=== PATIENT | female | born 1955 | race Caucasian/White ===

== ENCOUNTER 2017-05-17 16:49 | Emergency (ER) | payer BC ==
--- NOTE | 2017-05-17 19:43 | ED CLINICAL REPORT ---
Clinical Report - Physicians/Mid Levels [facility] [address] [place] [address] 05/17/2017 16:50 Patient: TORO GARCIA Time Seen: 17:00; upon arrival, initial patient contact. Arrived- By ambulance. Historian- patient and EMS personnel. HISTORY OF PRESENT ILLNESS Chief Complaint: ABDOMINAL PAIN. At its maximum, severity described as moderate. When seen in the E.D., it was almost gone. Modifying factors. Not worsened by anything. Not relieved by anything. It is described as sharp and burning. No radiation. It is described as located in the epigastric area. This started just prior to arrival. No nausea, loss of appetite, vomiting or diarrhea. Similar symptoms previously: None. Recent medical care: Not recently seen/assessed. REVIEW OF SYSTEMS No constipation, black stools, hematemesis, difficulty with urination or pain with urination. No urinary frequency, bloody stools, fever, chest pain or difficulty breathing. No chills. All systems otherwise negative, except as recorded above. PAST HISTORY Depression. SURGERIES: Bladder Sling. Tubal Ligation. SOCIAL HISTORY Never smoker. Occasional alcohol use. No drug use. ADDITIONAL NOTES The nursing notes have been reviewed. PHYSICAL EXAM Vital Signs: 05/17/2017 16:58 BP: 130/64. HR: 65. RR: 16. O2 saturation: 100%. Temp: 97.9 F. Have been reviewed. Blood pressure normal. Appearance: Alert. Oriented X3. No acute distress. Eyes: Eyes normal inspection. No pale conjunctivae. ENT: Dry mucous membranes present. CVS: Normal heart rate and rhythm. Heart sounds normal. Respiratory: No respiratory distress. Breath sounds normal. Abdomen: Soft and nontender. Bowel sounds normal. No mass. Femoral pulses equal. Back: Normal inspection. No CVA tenderness. Skin: Skin warm and dry. Normal skin color. No rash. Extremities: No calf tenderness. No lower extremity edema. Neuro: Oriented X 3. LABS, X-RAYS, AND EKG EKG: EKG time: (7185). No acute ischemia. Narrow-complex bradycardia (ventricular rate 55). Normal P waves. Normal ADI. Normal QRS complex. Normal axis. Normal ST and T waves, QT and QTc. Prior EKG unavailable. The study has been interpreted contemporaneously by me. The study has been independently viewed by me. The EKG appears to be a good tracing. I agree with and confirm the computer reading of the EKG. Interpretation time: 1705. Laboratory Tests: UA-Culture if indicated: (VINNY: 05/17/2017 18:05) ( MsgRcvd 05/17/2017 18:37) Final results Test Result Flag Units (Reference) URINE COLOR YELLOW URINE APPEARANCE CLEAR URINE GLUCOSE NEGATIVE (NEGATIVE) URINE BILIRUBIN NEGATIVE (NEGATIVE) URINE KETONE NEGATIVE (NEGATIVE) URINE SPECIFIC GRAVITY 1.025 (1.010-1.030) URINE PH 6.0 (5.0-8.0) URINE PROTEIN 1+ (NEGATIVE) URINE UROBILINOGEN 0.2 EU/dL (0.2-1.0) URINE NITRITE NEGATIVE (NEGATIVE) URINE BLOOD NEGATIVE (NEGATIVE) URINE LEUK ESTERASE NEGATIVE (NEGATIVE) URINE RBC NONE SEEN rbc/hpf (0-1) This is a corrected result 05/17/171833:URINE RBC previously reported as: 10-25 rbc/hpf URINE WBC 0-1 wbc/hpf (0-1) This is a corrected result 05/17/171833:URINE WBC previously reported as: 1-3 wbc/hpf URINE EPITHELIAL CELLS 1-3 EPI/hpf (0-5) URINE BACTERIA NONE SEEN (NONE SEEN) This is a corrected result 05/17/171834:URINE BACTERIA previously reported as: MANY (4+) URINE COMMENT CULT NOT INDICATED This is a corrected result 05/17/171834:URINE COMMENT previously reported as: CULTURE INDICATEDURINE CULTURES ARE SET-UP BASED ON THE FOLLOWING CRITERIA:POSITIVE NITRITEPOSITIVE LEUKOCYTE ESTERASEGREATER THAN 10 WHITE BLOOD CELLSMODERATE (2+) OR GREATER BACTERIA CBC w Diff: (VINNY: 05/17/2017 17:20) ( [facility] 05/17/2017 17:45) Final results Test Result Flag Units (Reference) WHITE BLOOD COUNT 7.5 K/uL (4.5-11.5) RED BLOOD COUNT 4.23 M/uL (4.00-5.20) HEMOGLOBIN 12.4 gm/dL (12.0-16.0) HEMATOCRIT 37.4 % (36.0-46.0) MEAN CELL VOLUME 88 fL (80-100) MEAN CORPUSCULAR HGB 29 pg (26-34) MEAN CORPUSCULAR HGB CONC 33 g/dL (31-37) RED CELL DISTRIBUTION WIDTH 12.6 % (11.6-14.8) PLATELET COUNT 110 L K/uL (150-400) LYMPH % 21.1 L % (25-40) MONO % 3.8 % (3-14) GRANULOCYTE % 75.1 (53-90) [id number]: (VINNY: 05/17/2017 17:20) ( [facility] 05/17/2017 17:51) Final results Test Result Flag Units (Reference) D-DIMER QUANTITATIVE 0.44 ug/mLFEU (0.27-0.52) The primary value of this quantitative assay relates toits negative predictive value (i.e. exclusion) of pulmonaryembolism/deep vein thrombosis/DIC.Elevated levels of d-dimer may also occur with:, age, cancer, inflammation, liver disease,post-op, infection, hematoma, coronary disease, peripheralarteriopathy, bleeding disorders and thrombolytic treatment.Results should be correlated with other clinical andradiological data.Testing Methodology: Latex Immunoassay CMP: (VINNY: 05/17/2017 17:20) ( MsgRcvd 05/17/2017 17:57) Final results Test Result Flag Units (Reference) GLUCOSE 103 mg/dL (70-110) BUN 17 mg/dL (7-18) CREATININE 0.8 mg/dL (0.6-1.3) Estimated GFR >60 mL/min Estimated GFR- >60 mL/min Note: Persistent reduction over 3 months in eGFR<60 mL/min/1.73 m2 defines CKD. Patients with eGFR values>=60 mL/min/1.73 m2 may also have CKD if evidence ofpersistent proteinuria. Additional information may be foundat [email or web address].org. SODIUM 144 mmol/L (136-145) POTASSIUM 3.7 mmol/L (3.5-5.1) CHLORIDE 108 H mmol/L (98-107) CARBON DIOXIDE 27 mmol/L (21-32) CALCIUM 8.2 L mg/dL (8.5-10.1) TOTAL PROTEIN 6.6 g/dL (6.4-8.2) ALBUMIN 3.2 L g/dL (3.3-5.0) BILIRUBIN, TOTAL 0.8 mg/dL (0.0-1.0) ALKALINE PHOSPHATASE 49 U/L (46-116) AST (SGOT) 53 H U/L (15-37) ALT (SGPT) 64 U/L (12-78) LIPASE 217 U/L (73-393) AMYLASE 41 U/L (25-115) . PROGRESS AND PROCEDURES Disposition: Discharged home in good and improved condition. Condition: good. CLINICAL IMPRESSION Acute gastritis. No alcoholic gastritis or hemorrhagic gastritis. Vasovagal syncope .12 lead EKG performed. INSTRUCTIONS Drink plenty of fluids. Your Current Medications: CONTINUE TAKING THE FOLLOWING MEDICATIONS: Sertraline HCl Oral : 100 mg daily. Prescription Medications: Omeprazole 40 mg capsules: take 1 capsule orally every day. Dispense thirty (30). No refill. Follow-up: Follow up with your doctor in about two days. Call for an appointment. Screening today revealed the patient's blood pressure to be in the hypertensive range. The patient should follow up with a primary care provider for blood pressure management. (Electronically signed by Michael Pascal Dr. 05/17/2017 22:18)
--- NOTE | 2017-05-17 19:43 | ED NURSING NOTES ---
Clinical Report - Nurses [facility] [address] [place] [address] 05/17/2017 16:50 Patient: TORO GARCIA TRIAGE Triage time 16:58. Acuity: LEVEL 3. Chief Complaint: (WEAKNESS). 16:59 05/17/17. 16:58 05/17/17. Alert. No acute distress. ( Pt was driving her car, developed abd pain, went to take TUMS, then felt weak, called 911 while pt was in her car. Pt was found to be hypotensive SBP 70's. After 800 mLs IV fluid pts BP came up and pt felt better.). SEPSIS SCREEN: Sepsis Screen. Negative (no infection suspected/documented). ALFONSO COMA SCORE: [place] Coma Scale: 15- eyes open spontaneously (4); best verbal response- oriented x 4 (5); best motor response- obeys commands (6). --17:03 Jurgen Turk R.N. 16:58 05/17/17. BP: 130/64. HR: 65. RR: 16. O2 saturation: 100% on room air. Temp: 97.9 F (oral). --17:03 Jurgen Turk R.N. Weight: 81.6 kg stated. Height/Length: 65 inches Per Patient. BMI: 30. --17:01 Jurgen Turk R.N. Medications Sertraline HCl Oral 100 mg, daily. --17:02 Jurgen Turk R.N. Medication/allergy information source: the patient and EMS. --17:03 Jurgen Turk R.N. Allergies Sulfa Antibiotics. --17:03 Jurgen Turk R.N. History Arrived by EMS. Primary physician (Isabel ERICKSON ([facility])). 16:59 05/17/17. ( 1 hour ago). Treatment RESIDENTIAL RECYCLE DRIVER: None. See EMS report. ( IV left hand by EMS, 800 mLs NS). PAST MEDICAL HX: Immunizations: up-to-date. SOCIAL HX: Never smoker. Occasional alcohol use. No drug use. FALL RISK ASSESSMENT: Fall risk assessment completed. No fall risk identified. NUTRITIONAL RISK ASSESSMENT: The nutritional risk assessment revealed no deficiencies. FUNCTIONAL ASSESSMENT: Functional assessment: no impairments noted. LEARNING NEEDS ASSESSMENT: The learning needs assessment revealed no barriers. SKIN INTEGRITY ASSESSMENT: Skin integrity risk assessment completed. No skin integrity risk identified. --17:03 Jurgen Turk R.N. Treatment RESIDENTIAL RECYCLE DRIVER: ( EKG time 1635-NSR). --17:22 Jurgen Turk R.N. PROBLEMS: Depression. --17:03 Jurgen Turk R.N. ADDITIONAL SURGERIES: Bladder Sling. Tubal Ligation. --17:03 Jurgen Turk R.N. Assessment 16:59 05/17/17. --17:03 Jurgen Turk R.N. Interventions 16:58 05/17/17. 16:59 05/17/17. ID and allergy band on patient. To treatment room. --17:03 Jurgen Turk R.N. PHYSICAL ASSESSMENT 17:04 05/17/17. To room via stretcher. GENERAL / NEURO / PSYCH: Alert. Oriented X 4. Appears in no acute distress. RESPIRATORY: Respirations not labored. CVS: Normal sinus rhythm noted. Cardiac rhythm: normal sinus rhythm; (60). Capillary refill less than 2 seconds. SKIN: Skin is warm and dry. --17:04 Jurgen Turk R.N. NURSING PROGRESS NOTES 17:05/17/17. The plan of care for this patient has been created. hospital monitor, pulse oximeter and NIBP monitor placed on patient; monitor alarms on. Patient gowned. Head of bed elevated. Reassurance given. Two patient identifiers checked. Call light placed in reach. Side rails up x 2. Bed placed in lowest position. Brakes of bed on. --17:04 Jurgen Turk R.N. 17:05/17/17. Patient ready for evaluation- chart flagged and notification provided. --17:04 Jurgen Turk R.N. 17:05/17/17. EKG time: (1705 PM). EKG was ordered, performed by a tech and shown to the ED physician. --17:05 Jurgen Turk R.N. 17:10 05/17/2017 Site #1 started prior to arrival by EMS via IV in the left hand with an 18g angiocath. Blood drawn: rainbow set (sajan labs out of IV prior to IV fluid start, 10 mL blood waste). --17:20 Jurgen Turk R.N. 17:20 05/17/2017 Started bag #1 1000 mL IV Fluids IV NS (Saline); at 1000 mL/hr over 1 hour(s) via site #1. Allergies verified and confirmed 5 rights. IV patency established. IV site checked: no pain, redness, or swelling. IV flushed thoroughly pre- and post-medication administration. Completed per protocol. --17:20 Jurgen Turk R.N. 17:22 05/17/17. Cardiac rhythm: normal sinus rhythm. --17:22 Jurgen Turk R.N. 17:20 05/17/17. HR: 57. RR: 11. O2 saturation: 98% on room air. --17:22 Jurgen Turk R.N. 17:41 05/17/17. --17:41 Jurgen Turk R.N. 17:40 05/17/17. BP: 140/80. HR: 80. RR: 14. O2 saturation: 99% on room air. Temp: 98.2 F (oral). --17:41 Jurgen Turk R.N. 17:52 05/17/17. --17:52 Jurgen Turk R.N. 17:51 05/17/17. BP: 134/76 taken while lying. HR: 63. RR: 15. O2 saturation: 97% on room air. --17:52 Jurgen Turk R.N. 17:53 05/17/17. Cardiac rhythm: normal sinus rhythm. --17:53 Jurgen Turk R.N. 17:54 05/17/17. Cardiac rhythm: normal sinus rhythm. --17:54 Jurgen Turk R.N. 17:53 05/17/17. BP: 131/71 taken while sitting. HR: 71. RR: 16. O2 saturation: 98% on room air. --17:54 Jurgen Turk R.N. <<STRICKEN ENTRY-- 17:53 05/17/17. BP: 134/76 taken while sitting. HR: 71. RR: 16. O2 saturation: 98% on room air. --17:54 Jurgen Turk R.N. --END STRIKE>> Correction. --19:04 Jurgen Turk R.N. 17:55 05/17/17. Cardiac rhythm: normal sinus rhythm. --17:55 Jurgen Turk R.N. 17:54 05/17/17. BP: 141/97 taken while standing. HR: 76. RR: 15. O2 saturation: 100% on room air. --17:55 Jurgen Turk R.N. 18:50 05/17/17. --18:50 Jurgen Turk R.N. 18:49 05/17/17. BP: 142/76. HR: 61. RR: 16. O2 saturation: 100% on room air. Temp: 98.1 F (oral). Pain level now: 0/10. --18:50 Jurgen Turk R.N. 19:02 05/17/17. Care transferred and report given. --19:02 Jurgen Turk R.N. 19:05 05/17/17. ( Pt up to void). --19:05 Jugren Turk R.N. 19:05/17/17. Patient and family informed about reason for wait and about plan of care. --19:05 Jurgen Turk R.N. 19:05/17/17. The patient reports no complaints. RESPIRATORY: No respiratory distress. SKIN: Skin is warm and dry. Skin color within normal limits. --19:05 Jurgen Turk R.N. DISPOSITION / DISCHARGE 20:04 05/17/2017 Site #1 removed upon discharge. Catheter intact. Manual pressure and bandage applied. --20:06 Jane Sotelo R.N. 20:06 05/17/17. BP: 144/76 taken on the right arm, while lying. HR: 64 (regular). RR: 18. O2 saturation: 98% on room air. Temp: deferred. Pain level now: 0/10. --20:07 Jane Sotelo R.N. Departure time: 20:07. Condition at departure: improved and stable. No learning barriers present. Discharge instructions provided and reviewed with the patient. Reviewed medication(s) side effects, precautions, dosing and course information. Prescription(s) given to the patient. Reviewed referral to a primary care physician for followup. Patient verbalized understanding. Written instructions provided in [place]i. The patient was discharged home and accompanied by spouse. She left the Emergency Department ambulatory and via private vehicle. Spouse driving. --20:07 Jane Sotelo R.N. 20:05 05/17/2017 IV Fluids IV NS Discontinued: upon discharge. Total amount infused: 0 mL. IV patency established. IV site checked: no pain, redness, or swelling. IV flushed thoroughly. --20:08 Jane Sotelo R.N. Locked/Released at 05/17/2017 20:08 by Jane Sotelo R.N.
--- NOTE | 2017-05-17 19:43 | ED NURSING NOTES ---
Clinical Report - Nurses [facility] [address] [place] [address] 05/17/2017 16:50 Patient: TORO GARCIA TRIAGE Triage time 16:58. Acuity: LEVEL 3. Chief Complaint: (WEAKNESS). 16:59 05/17/17. 16:58 05/17/17. Alert. No acute distress. ( Pt was driving her car, developed abd pain, went to take TUMS, then felt weak, called 911 while pt was in her car. Pt was found to be hypotensive SBP 70's. After 800 mLs IV fluid pts BP came up and pt felt better.). SEPSIS SCREEN: Sepsis Screen. Negative (no infection suspected/documented). ALFONSO COMA SCORE: [place] Coma Scale: 15- eyes open spontaneously (4); best verbal response- oriented x 4 (5); best motor response- obeys commands (6). --17:03 Jurgen Turk R.N. 16:58 05/17/17. BP: 130/64. HR: 65. RR: 16. O2 saturation: 100% on room air. Temp: 97.9 F (oral). --17:03 Jurgen Turk R.N. Weight: 81.6 kg stated. Height/Length: 65 inches Per Patient. BMI: 30. --17:01 Jurgen Turk R.N. Medications Sertraline HCl Oral 100 mg, daily. --17:02 Jurgen Turk R.N. Medication/allergy information source: the patient and EMS. --17:03 Jurgen Turk R.N. Allergies Sulfa Antibiotics. --17:03 Jurgen Turk R.N. History Arrived by EMS. Primary physician (Isabel ERICKSON ([facility])). 16:59 05/17/17. ( 1 hour ago). Treatment TABULAR TYPIST: None. See EMS report. ( IV left hand by EMS, 800 mLs NS). PAST MEDICAL HX: Immunizations: up-to-date. SOCIAL HX: Never smoker. Occasional alcohol use. No drug use. FALL RISK ASSESSMENT: Fall risk assessment completed. No fall risk identified. NUTRITIONAL RISK ASSESSMENT: The nutritional risk assessment revealed no deficiencies. FUNCTIONAL ASSESSMENT: Functional assessment: no impairments noted. LEARNING NEEDS ASSESSMENT: The learning needs assessment revealed no barriers. SKIN INTEGRITY ASSESSMENT: Skin integrity risk assessment completed. No skin integrity risk identified. --17:03 Jurgen Turk R.N. Treatment TABULAR TYPIST: ( EKG time 1635-NSR). --17:22 Jurgen Turk R.N. PROBLEMS: Depression. --17:03 Jurgen Turk R.N. ADDITIONAL SURGERIES: Bladder Sling. Tubal Ligation. --17:03 Jurgen Turk R.N. Assessment 16:59 05/17/17. --17:03 Jurgen Turk R.N. Interventions 16:58 05/17/17. 16:59 05/17/17. ID and allergy band on patient. To treatment room. --17:03 Jurgen Turk R.N. PHYSICAL ASSESSMENT 17:04 05/17/17. To room via stretcher. GENERAL / NEURO / PSYCH: Alert. Oriented X 4. Appears in no acute distress. RESPIRATORY: Respirations not labored. CVS: Normal sinus rhythm noted. Cardiac rhythm: normal sinus rhythm; (60). Capillary refill less than 2 seconds. SKIN: Skin is warm and dry. --17:04 Jurgen Turk R.N. NURSING PROGRESS NOTES 17:05/17/17. The plan of care for this patient has been created. front desk monitor, pulse oximeter and NIBP monitor placed on patient; monitor alarms on. Patient gowned. Head of bed elevated. Reassurance given. Two patient identifiers checked. Call light placed in reach. Side rails up x 2. Bed placed in lowest position. Brakes of bed on. --17:04 Jurgen Turk R.N. 17:05/17/17. Patient ready for evaluation- chart flagged and notification provided. --17:04 Jurgen Turk R.N. 17:05/17/17. EKG time: (1705 PM). EKG was ordered, performed by a tech and shown to the ED physician. --17:05 Jurgen Turk R.N. 17:10 05/17/2017 Site #1 started prior to arrival by EMS via IV in the left hand with an 18g angiocath. Blood drawn: rainbow set (sajan labs out of IV prior to IV fluid start, 10 mL blood waste). --17:20 Jurgen Turk R.N. 17:20 05/17/2017 Started bag #1 1000 mL IV Fluids IV NS (Saline); at 1000 mL/hr over 1 hour(s) via site #1. Allergies verified and confirmed 5 rights. IV patency established. IV site checked: no pain, redness, or swelling. IV flushed thoroughly pre- and post-medication administration. Completed per protocol. --17:20 Jurgen Turk R.N. 17:22 05/17/17. Cardiac rhythm: normal sinus rhythm. --17:22 Jurgen Turk R.N. 17:20 05/17/17. HR: 57. RR: 11. O2 saturation: 98% on room air. --17:22 Jurgen Turk R.N. 17:41 05/17/17. --17:41 Jurgen Turk R.N. 17:40 05/17/17. BP: 140/80. HR: 80. RR: 14. O2 saturation: 99% on room air. Temp: 98.2 F (oral). --17:41 Jurgen Turk R.N. 17:52 05/17/17. --17:52 Jurgen Turk R.N. 17:51 05/17/17. BP: 134/76 taken while lying. HR: 63. RR: 15. O2 saturation: 97% on room air. --17:52 Jurgen Turk R.N. 17:53 05/17/17. Cardiac rhythm: normal sinus rhythm. --17:53 Jurgen Turk R.N. 17:54 05/17/17. Cardiac rhythm: normal sinus rhythm. --17:54 Jurgen Turk R.N. 17:53 05/17/17. BP: 131/71 taken while sitting. HR: 71. RR: 16. O2 saturation: 98% on room air. --17:54 Jurgen Turk R.N. <<STRICKEN ENTRY-- 17:53 05/17/17. BP: 134/76 taken while sitting. HR: 71. RR: 16. O2 saturation: 98% on room air. --17:54 Jurgen Truk R.N. --END STRIKE>> Correction. --19:04 Jurgen Turk R.N. 17:55 05/17/17. Cardiac rhythm: normal sinus rhythm. --17:55 Jurgen Turk R.N. 17:54 05/17/17. BP: 141/97 taken while standing. HR: 76. RR: 15. O2 saturation: 100% on room air. --17:55 Jurgen Turk R.N. 18:50 05/17/17. --18:50 Jurgen Turk R.N. 18:49 05/17/17. BP: 142/76. HR: 61. RR: 16. O2 saturation: 100% on room air. Temp: 98.1 F (oral). Pain level now: 0/10. --18:50 Jurgen Turk R.N. 19:02 05/17/17. Care transferred and report given. --19:02 Jurgen Turk R.N. 19:05 05/17/17. ( Pt up to void). --19:05 Jurgen Turk R.N. 19:05/17/17. Patient and family informed about reason for wait and about plan of care. --19:05 Jurgen Turk R.N. 19:05/17/17. The patient reports no complaints. RESPIRATORY: No respiratory distress. SKIN: Skin is warm and dry. Skin color within normal limits. --19:05 Jurgen Turk R.N. DISPOSITION / DISCHARGE 20:04 05/17/2017 Site #1 removed upon discharge. Catheter intact. Manual pressure and bandage applied. --20:06 Jane Sotelo R.N. 20:06 05/17/17. BP: 144/76 taken on the right arm, while lying. HR: 64 (regular). RR: 18. O2 saturation: 98% on room air. Temp: deferred. Pain level now: 0/10. --20:07 Jane Sotelo R.N. Departure time: 20:07. Condition at departure: improved and stable. No learning barriers present. Discharge instructions provided and reviewed with the patient. Reviewed medication(s) side effects, precautions, dosing and course information. Prescription(s) given to the patient. Reviewed referral to a primary care physician for followup. Patient verbalized understanding. Written instructions provided in [place]. The patient was discharged home and accompanied by spouse. She left the Emergency Department ambulatory and via private vehicle. Spouse driving. --20:07 Jane Sotelo R.N. 20:05 05/17/2017 IV Fluids IV NS Discontinued: upon discharge. Total amount infused: 0 mL. IV patency established. IV site checked: no pain, redness, or swelling. IV flushed thoroughly. --20:08 Jane Sotelo R.N. Locked/Released at 05/17/2017 20:08 by Jane Sotelo R.N.
--- NOTE | 2017-05-17 19:43 | ED ORDER SUMMARY ---
..... Patient: TORO GARCIA OrderSheet [facility] VisitID: [id number] [place] [address] 61y, F Registration Date/Time: 05/17/2017 ORDER SHEET Weight: 81.6 kg (stated) Allergies: Sulfa Antibiotics GENERAL ORDERS: CBC w Diff Urgent (17:01 05/17/2017 Aquilino Yang) (Ack 17:03 LNations ER Tech1) (17:19 JBoardley R.N.) CMP Urgent (17:05/17/2017 Aquilino Yang) (Ack 17:03 LNations ER Tech1) (17:19 JBoardley R.N.) UA-Culture if indicated Urgent (17:01 05/17/2017 Aquilino Yang) (Ack 17:03 LNations ER Tech1) (18:12 JBoardley R.N.) Amylase Urgent (17:05/17/2017 Aquilino Yang) (Ack 17:03 LNations ER Tech1) (17:19 JBoardley R.N.) Lipase Urgent (17:01 05/17/2017 Aquilino Yang) (Ack 17:03 LNations ER Tech1) (17:19 JBoardley R.N.) D-Dimer Urgent (17:01 05/17/2017 Aquilino Yang) (Ack 17:03 LNations ER Tech1) (17:19 JBoardley R.N.) EKG - ER Stat (18:46 05/17/2017 LNations ER Tech1 per protocol) (18:46 LNations ER Tech1) MEDICATION ORDERS: IV FLUIDS: IV NS : initial bolus none -, then 1000 mL/hr for X1 (NOW) (17:00 05/17/2017 Aquilino Yang) (Ack 17:05 JBoardley R.N.) (17:20 JBoardley R.N.) ORDER SHEET NOTES: [Electronically signed by Jane Sotelo R.N. (20:08 05/17/2017)] [Electronically signed by Michael Pascal Dr. (22:18 05/17/2017)] [Electronically locked/signed by Jane Sotelo R.N. (20:08 05/17/2017)]
--- NOTE | 2017-05-17 19:43 | ED CLINICAL REPORT ---
Clinical Report - Physicians/Mid Levels Formerly [facility] [address] [place] [address] 05/17/2017 16:50 Patient: TORO GARCIA Time Seen: 17:00; upon arrival, initial patient contact. Arrived- By ambulance. Historian- patient and EMS personnel. HISTORY OF PRESENT ILLNESS Chief Complaint: ABDOMINAL PAIN. At its maximum, severity described as moderate. When seen in the E.D., it was almost gone. Modifying factors. Not worsened by anything. Not relieved by anything. It is described as sharp and burning. No radiation. It is described as located in the epigastric area. This started just prior to arrival. No nausea, loss of appetite, vomiting or diarrhea. Similar symptoms previously: None. Recent medical care: Not recently seen/assessed. REVIEW OF SYSTEMS No constipation, black stools, hematemesis, difficulty with urination or pain with urination. No urinary frequency, bloody stools, fever, chest pain or difficulty breathing. No chills. All systems otherwise negative, except as recorded above. PAST HISTORY Depression. SURGERIES: Bladder Sling. Tubal Ligation. SOCIAL HISTORY Never smoker. Occasional alcohol use. No drug use. ADDITIONAL NOTES The nursing notes have been reviewed. PHYSICAL EXAM Vital Signs: 05/17/2017 16:58 BP: 130/64. HR: 65. RR: 16. O2 saturation: 100%. Temp: 97.9 F. Have been reviewed. Blood pressure normal. Appearance: Alert. Oriented X3. No acute distress. Eyes: Eyes normal inspection. No pale conjunctivae. ENT: Dry mucous membranes present. CVS: Normal heart rate and rhythm. Heart sounds normal. Respiratory: No respiratory distress. Breath sounds normal. Abdomen: Soft and nontender. Bowel sounds normal. No mass. Femoral pulses equal. Back: Normal inspection. No CVA tenderness. Skin: Skin warm and dry. Normal skin color. No rash. Extremities: No calf tenderness. No lower extremity edema. Neuro: Oriented X 3. LABS, X-RAYS, AND EKG EKG: EKG time: (1555). No acute ischemia. Narrow-complex bradycardia (ventricular rate 55). Normal P waves. Normal ADI. Normal QRS complex. Normal axis. Normal ST and T waves, QT and QTc. Prior EKG unavailable. The study has been interpreted contemporaneously by me. The study has been independently viewed by me. The EKG appears to be a good tracing. I agree with and confirm the computer reading of the EKG. Interpretation time: 1705. Laboratory Tests: UA-Culture if indicated: (VINNY: 05/17/2017 18:05) ( MsgRcvd 05/17/2017 18:37) Final results Test Result Flag Units (Reference) URINE COLOR YELLOW URINE APPEARANCE CLEAR URINE GLUCOSE NEGATIVE (NEGATIVE) URINE BILIRUBIN NEGATIVE (NEGATIVE) URINE KETONE NEGATIVE (NEGATIVE) URINE SPECIFIC GRAVITY 1.025 (1.010-1.030) URINE PH 6.0 (5.0-8.0) URINE PROTEIN 1+ (NEGATIVE) URINE UROBILINOGEN 0.2 EU/dL (0.2-1.0) URINE NITRITE NEGATIVE (NEGATIVE) URINE BLOOD NEGATIVE (NEGATIVE) URINE LEUK ESTERASE NEGATIVE (NEGATIVE) URINE RBC NONE SEEN rbc/hpf (0-1) This is a corrected result 05/17/171833:URINE RBC previously reported as: 10-25 rbc/hpf URINE WBC 0-1 wbc/hpf (0-1) This is a corrected result 05/17/171833:URINE WBC previously reported as: 1-3 wbc/hpf URINE EPITHELIAL CELLS 1-3 EPI/hpf (0-5) URINE BACTERIA NONE SEEN (NONE SEEN) This is a corrected result 05/17/171834:URINE BACTERIA previously reported as: MANY (4+) URINE COMMENT CULT NOT INDICATED This is a corrected result 05/17/171834:URINE COMMENT previously reported as: CULTURE INDICATEDURINE CULTURES ARE SET-UP BASED ON THE FOLLOWING CRITERIA:POSITIVE NITRITEPOSITIVE LEUKOCYTE ESTERASEGREATER THAN 10 WHITE BLOOD CELLSMODERATE (2+) OR GREATER BACTERIA CBC w Diff: (VINNY: 05/17/2017 17:20) ( [facility] 05/17/2017 17:45) Final results Test Result Flag Units (Reference) WHITE BLOOD COUNT 7.5 K/uL (4.5-11.5) RED BLOOD COUNT 4.23 M/uL (4.00-5.20) HEMOGLOBIN 12.4 gm/dL (12.0-16.0) HEMATOCRIT 37.4 % (36.0-46.0) MEAN CELL VOLUME 88 fL (80-100) MEAN CORPUSCULAR HGB 29 pg (26-34) MEAN CORPUSCULAR HGB CONC 33 g/dL (31-37) RED CELL DISTRIBUTION WIDTH 12.6 % (11.6-14.8) PLATELET COUNT 110 L K/uL (150-400) LYMPH % 21.1 L % (25-40) MONO % 3.8 % (3-14) GRANULOCYTE % 75.1 (53-90) [id number]: (VINNY: 05/17/2017 17:20) ( [facility] 05/17/2017 17:51) Final results Test Result Flag Units (Reference) D-DIMER QUANTITATIVE 0.44 ug/mLFEU (0.27-0.52) The primary value of this quantitative assay relates toits negative predictive value (i.e. exclusion) of pulmonaryembolism/deep vein thrombosis/DIC.Elevated levels of d-dimer may also occur with:, age, cancer, inflammation, liver disease,post-op, infection, hematoma, coronary disease, peripheralarteriopathy, bleeding disorders and thrombolytic treatment.Results should be correlated with other clinical andradiological data.Testing Methodology: Latex Immunoassay CMP: (VINNY: 05/17/2017 17:20) ( MsgRcvd 05/17/2017 17:57) Final results Test Result Flag Units (Reference) GLUCOSE 103 mg/dL (70-110) BUN 17 mg/dL (7-18) CREATININE 0.8 mg/dL (0.6-1.3) Estimated GFR >60 mL/min Estimated GFR- >60 mL/min Note: Persistent reduction over 3 months in eGFR<60 mL/min/1.73 m2 defines CKD. Patients with eGFR values>=60 mL/min/1.73 m2 may also have CKD if evidence ofpersistent proteinuria. Additional information may be foundat [email or web address]. SODIUM 144 mmol/L (136-145) POTASSIUM 3.7 mmol/L (3.5-5.1) CHLORIDE 108 H mmol/L (98-107) CARBON DIOXIDE 27 mmol/L (21-32) CALCIUM 8.2 L mg/dL (8.5-10.1) TOTAL PROTEIN 6.6 g/dL (6.4-8.2) ALBUMIN 3.2 L g/dL (3.3-5.0) BILIRUBIN, TOTAL 0.8 mg/dL (0.0-1.0) ALKALINE PHOSPHATASE 49 U/L (46-116) AST (SGOT) 53 H U/L (15-37) ALT (SGPT) 64 U/L (12-78) LIPASE 217 U/L (73-393) AMYLASE 41 U/L (25-115) . PROGRESS AND PROCEDURES Disposition: Discharged home in good and improved condition. Condition: good. CLINICAL IMPRESSION Acute gastritis. No alcoholic gastritis or hemorrhagic gastritis. Vasovagal syncope .12 lead EKG performed. INSTRUCTIONS Drink plenty of fluids. Your Current Medications: CONTINUE TAKING THE FOLLOWING MEDICATIONS: Sertraline HCl Oral : 100 mg daily. Prescription Medications: Omeprazole 40 mg capsules: take 1 capsule orally every day. Dispense thirty (30). No refill. Follow-up: Follow up with your doctor in about two days. Call for an appointment. Screening today revealed the patient's blood pressure to be in the hypertensive range. The patient should follow up with a primary care provider for blood pressure management. (Electronically signed by Michael Pascal Dr. 05/17/2017 22:18)
--- NOTE | 2017-05-17 19:43 | ED ORDER SUMMARY ---
..... Patient: TORO GARCIA OrderSheet [facility] VisitID: [id number] [place] [address] 61y, F Registration Date/Time: 05/17/2017 ORDER SHEET Weight: 81.6 kg (stated) Allergies: Sulfa Antibiotics GENERAL ORDERS: CBC w Diff Urgent (17:01 05/17/2017 Aquilino Yang) (Ack 17:03 LNations ER Tech1) (17:19 JBoardley R.N.) CMP Urgent (17:05/17/2017 Aquilino Yang) (Ack 17:03 LNations ER Tech1) (17:19 JBoardley R.N.) UA-Culture if indicated Urgent (17:01 05/17/2017 Aquilino Yang) (Ack 17:03 LNations ER Tech1) (18:12 JBoardley R.N.) Amylase Urgent (17:05/17/2017 Aquilino Yang) (Ack 17:03 LNations ER Tech1) (17:19 JBoardley R.N.) Lipase Urgent (17:01 05/17/2017 Aquilino Yang) (Ack 17:03 LNations ER Tech1) (17:19 JBoardley R.N.) D-Dimer Urgent (17:01 05/17/2017 Aquilino Yang) (Ack 17:03 LNations ER Tech1) (17:19 JBoardley R.N.) EKG - ER Stat (18:46 05/17/2017 LNations ER Tech1 per protocol) (18:46 LNations ER Tech1) MEDICATION ORDERS: IV FLUIDS: IV NS : initial bolus none -, then 1000 mL/hr for X1 (NOW) (17:00 05/17/2017 Aquilino Yang) (Ack 17:05 JBoardley R.N.) (17:20 JBoardley R.N.) ORDER SHEET NOTES: [Electronically signed by Jane Sotelo R.N. (20:08 05/17/2017)] [Electronically signed by Michael Pascal Dr. (22:18 05/17/2017)] [Electronically locked/signed by Jane Sotelo R.N. (20:08 05/17/2017)]
--- NOTE | 2017-05-17 22:18 | ED MED RECONCILIATION SUMMARY ---
Patient: TORO GARCIA Medication Reconciliation Report [facility] VisitID: [id number] [address] [place] [address] 61y, F Registration Date/Time: 05/17/2017 Weight: 81.6 kg Height/Length: 65 in. BMI: 30.0 ALLERGIES: Sulfa Antibiotics The patient's Home Medications are listed below: CONTINUE TAKING THE FOLLOWING MEDICATIONS: Sertraline HCl Oral 100 mg, daily The source(s) of the original Home Medication information: patient EMS The following Medications were given to the patient in the Emergency Department: IV NS IV Fluids bolus 0, then 1000 mL/hr, administered: 05/17/2017 5:20:00 PM The following Medications were prescribed to the patient: Omeprazole 40 mg capsules: take 1 capsule orally every day. Dispense thirty (30). No refill. -- Michael Pascal Dr.
--- NOTE | 2017-05-17 22:18 | ED MED RECONCILIATION SUMMARY ---
Patient: TORO GARCIA Medication Reconciliation Report [facility] VisitID: [id number] [address] [place] [address] 61y, F Registration Date/Time: 05/17/2017 Weight: 81.6 kg Height/Length: 65 in. BMI: 30.0 ALLERGIES: Sulfa Antibiotics The patient's Home Medications are listed below: CONTINUE TAKING THE FOLLOWING MEDICATIONS: Sertraline HCl Oral 100 mg, daily The source(s) of the original Home Medication information: patient EMS The following Medications were given to the patient in the Emergency Department: IV NS IV Fluids bolus 0, then 1000 mL/hr, administered: 05/17/2017 5:20:00 PM The following Medications were prescribed to the patient: Omeprazole 40 mg capsules: take 1 capsule orally every day. Dispense thirty (30). No refill. -- Michael Pascal Dr.
--- NOTE | 2017-05-17 22:18 | ED MAR SUMMARY ---
..... Medication Administration Record [facility] [address] [place] [address] Patient: TORO GARCIA Visit ID: [id number] 61y, F Weight: 81.6 kg Height/Length: 65 in BMI: 30 ALLERGIES: Sulfa Antibiotics Start 17:20 05/17/2017 Jurgen Turk RNolan, Stop 20:05 05/17/2017 Jane Sotelo R.N. Medication Administered: IV NS (SALINE), Dose: IV Fluids over 1 hour(s), Rate: 1000 mL/hr, Dispensed: 1000 mL bag, Site: #1 left hand. Medication Ordered: IV NS : initial bolus none -, then 1000 mL/hr for X1 (NOW).
--- NOTE | 2017-05-17 22:18 | ED MAR SUMMARY ---
..... Medication Administration Record [facility] [address] [place] [address] Patient: TORO GARCIA Visit ID: [id number] 61y, F Weight: 81.6 kg Height/Length: 65 in BMI: 30 ALLERGIES: Sulfa Antibiotics Start 17:20 05/17/2017 Jurgen Turk RNolan, Stop 20:05 05/17/2017 Jane Sotelo R.N. Medication Administered: IV NS (SALINE), Dose: IV Fluids over 1 hour(s), Rate: 1000 mL/hr, Dispensed: 1000 mL bag, Site: #1 left hand. Medication Ordered: IV NS : initial bolus none -, then 1000 mL/hr for X1 (NOW).
--- NOTE | 2017-05-17 22:18 | ED DISCHARGE INSTRUCTIONS ---
Patient: TORO GARCIA General Instructions [facility] VisitID: [id number] [place] [address] 61y, F Registration Date/Time: 05/17/2017 Acute gastritis. No alcoholic gastritis or hemorrhagic gastritis. Vasovagal syncope .12 lead EKG performed. INSTRUCTIONS Drink plenty of fluids. Your Current Medications: CONTINUE TAKING THE FOLLOWING MEDICATIONS: Sertraline HCl Oral : 100 mg daily. Prescription Medications: Omeprazole 40 mg capsules: take 1 capsule orally every day. Dispense thirty (30). No refill. Follow-up: Follow up with your doctor in about two days. Call for an appointment. Screening today revealed the patient's blood pressure to be in the hypertensive range. The patient should follow up with a primary care provider for blood pressure management. ADDITIONAL INFORMATION Gastritis (Adult) Gastritis is an irritation of the stomach lining. It can be acute (recent) or chronic (lasting a long time). Gastritis can be caused by overuse of alcohol or anti-inflammatory medications (such as aspirin, ibuprofen, or prednisone). H pyloriinfection can also cause chronic gastritis. Gastritis can cause a dull ache or burning pain in the upper abdomen. Other symptoms include nausea, vomiting, loss of appetite, and belching or bloating. Blood in the vomit or stools (red or black) is a sign of bleeding in the stomach. This requires immediate medical attention. Tests for H pyloriare used to screen for bacterial infection. If no infection is found, gastritis can be treated by stopping the cause and treating with antacids plus an acid stephie medication. If H pylori infection is found, antibiotics will also be prescribed. Persons 55 years and older may undergo other tests before treatment is started. Two common tests are used to evaluate your symptoms. An upper GI series is an x-ray taken after you drink a chalky liquid called barium. This coats the stomach and allows the doctor to view any problems in the stomach on the x-ray. Another test is called endoscopy, during which a long thin tube called an endoscope is passed down your throat to the stomach. A camera at the end of the scope allows the doctor to view inside the stomach to check the cause of your symptoms. Home Care: Take the prescribed acid stephie medication for the full course of treatment even if you begin to feel better sooner. This medication can take up to several days to fully control your symptoms. If you cant afford the prescribed medication, you can try [id number]-[id number] acid blockers, such as Pepcid AC, Tagamet, Zantac, or Aciphex. If these do not relieve your symptoms, a stronger acid-stephie can be tried, such as Prilosec OTC. If you have been prescribed an antibiotic to treat H pyloriinfection, finish the full course of medication. Do so even if you begin to feel better sooner. If you stop the medication too soon, the infection can return and be harder to treat. You can use antacids, such as Tums, Rolaids, Mylanta, or Maalox, for pain. This will be useful the first few days after starting acid blockers when the blockers havent started working yet. Follow the directions on the label. Liquid antacids may work better than tablets. Note that antacids can interfere with absorption of certain medications. Specifically, do not take Tagamet (cimetidine), Zantac (ranitidine), or Carafate (sucralfate) within 1 hour of taking an antacid. Talk with your pharmacist if you have any questions. Symptoms of gastritis can be worsened by certain foods. Limit or avoid fatty, fried, and spicy foods, as well as coffee, chocolate, mint, and foods with high acid content such as tomatoes and citrus fruit and juices (orange, grapefruit, lemon). Avoid alcohol, caffeine, and tobacco, which can delay healing. Avoid aspirin and anti-inflammatory medications such as ibuprofen (Advil, Motrin) and naproxen (Naprosyn, Aleve). Acetaminophen (Tylenol) is safe to use. Do not take more than the amount listed on the label. Follow Up with your doctor, or as advised by our staff. Further testing may be needed. If you do not improve over the next 4 days, contact your doctor. If you had an x-ray, CT scan, or ECG (electrocardiogram), it will be reviewed by a specialist. Youll be notified of any new findings that affect your care. Get Prompt Medical Attention if any of the following occur: Stomach pain gets worse or moves to the lower right abdomen (appendix area) Chest pain appears or gets worse, or spreads to the back, neck, shoulder, or arm Frequent vomiting (cant keep down liquids) Blood in the stool or vomit (red or black in color) Feeling weak or dizzy, fainting, or trouble breathing Fever of 100.4F (38C) or higher, or as directed by your healthcare provider Fainting:Vagal Reaction Fainting (syncope) is a temporary loss of consciousness ("passing out"). It occurs when blood flow to the brain is reduced. Your doctor believes that your episode was due to a vagal reaction. This condition is not a sign of serious disease. A vagal reaction is a reflex response that causes the pulse to slow down or the blood vessels to dilate. This causes the blood pressure to fall, reducing the blood flow to the brain if you are standing or sitting. That results in dizziness, near-fainting or fainting. Lying down usually stops the reaction within 60 seconds. This reflex response can occur during sudden fear, severe pain, emotional stress, overexertion, overheating, hunger, nausea or vomiting, prolonged standing or standing up after sitting or lying for a long time. Home Care: 1) Rest today and resume your normal activities as soon as you are feeling back to normal. 2) If you become light-headed or dizzy, lie down immediately or sit with your head lowered between your knees. Follow Up with your doctor as instructed. Get Prompt Medical Attention if any of the following occur: -- Another fainting spell occurs, which is not explained by the common causes listed above -- Chest, arm, neck, jaw, back or abdominal pain -- Shortness of breath -- Severe headache or seizure -- Blood in vomit, stools (black or red color) -- Unexpected vaginal bleeding -- Palpitations (very rapid or very slow or irregular heart beat) -- Signs of stroke: Weakness of an arm or leg or one side of the face Difficulty with speech or vision Extreme drowsiness, confusion, dizziness or fainting Omeprazole Magnesium Gastro-resistant tablet What is this medicine? OMEPRAZOLE (oh ME pray zol) prevents the production of acid in the stomach. It is used to treat the symptoms of heartburn. You can buy this medicine without a prescription. This product is not for long-term use, unless otherwise directed by your doctor or health director of patient care. How should I use this medicine? Take this medicine by mouth. Follow the directions on the product label. If you are taking this medicine without a prescription, take one tablet every day. Do not use for longer than 14 days or repeat a course of treatment more often than every 4 months unless directed by a doctor or healthcare professional. Take your dose at regular intervals every 24 hours. Swallow the tablet whole with a drink of water. Do not crush, break or chew. This medicine works best if taken on an empty stomach 30 minutes before breakfast. If you are using this medicine with the prescription of your doctor or healthcare professional, follow the directions you were given. Do not take your medicine more often than directed. Talk to your ballast regulator operator regarding the use of this medicine in children. Special care may be needed. What side effects may I notice from receiving this medicine? Side effects that you should report to your doctor or health director of patient care as soon as possible: allergic reactions like skin rash, itching or hives, swelling of the face, lips, or tongue bone, muscle or joint pain breathing problems chest pain or chest tightness dark yellow or brown urine diarrhea dizziness fast, irregular heartbeat feeling faint or lightheaded fever or sore throat muscle spasm palpitations redness, blistering, peeling or loosening of the skin, including inside the mouth seizures tremors unusual bleeding or bruising unusually weak or tired yellowing of the eyes or skin Side effects that usually do not require medical attention (Report these to your doctor or health director of patient care if they continue or are bothersome.): constipation dry mouth headache loose stools nausea What may interact with this medicine? Do not take this medicine with any of the following medications: atazanavir clopidogrel nelfinavir This medicine may also interact with the following medications: ampicillin certain medicines for anxiety or sleep certain medicines that treat or prevent blood clots like warfarin cyclosporine diazepam digoxin disulfiram iron salts phenytoin prescription medicine for fungal or yeast infection like itraconazole, ketoconazole, voriconazole saquinavir tacrolimus What if I miss a dose? If you miss a dose, take it as soon as you can. If it is almost time for your next dose, take only that dose. Do not take double or extra doses. Where should I keep my medicine? Keep out of the reach of children. Store at room temperature between 20 and 25 degrees C (68 and 77 degrees F). Protect from light and moisture. Throw away any unused medicine after the expiration date. What should I tell my health care provider before I take this medicine? They need to know if you have any of these conditions: black or bloody stools chest pain difficulty swallowing have had heartburn for over 3 months have heartburn with dizziness, lightheadedness or sweating liver disease stomach pain unexplained weight loss vomiting with blood wheezing an unusual or allergic reaction to omeprazole, other medicines, foods, dyes, or preservatives or trying to get breast-feeding What should I watch for while using this medicine? It can take several days before your heartburn gets better. Check with your doctor or health director of patient care if your condition does not start to get better, or if it gets worse. Do not treat diarrhea with over the counter products. Contact your doctor if you have diarrhea that lasts more than 2 days or if it is severe and watery. Do not treat yourself for heartburn with this medicine for more than 14 days in a row. You should only use this medicine for a 2-week treatment period once every 4 months. If your symptoms return shortly after your therapy is complete, or within the 4 month time frame, call your doctor or health director of patient care. You have been given the following additional information: Gastritis (Adult) Syncope, Vasovagal Omeprazole Magnesium Gastro-resistant tablet (Electronically signed by Michael Pascal Dr. 05/17/2017 22:18)
== END 2017-05-17 20:08 | disposition home or self-care (01) ==
LOC: ED SRH 16:49
DX: K29.00 Acute gastritis without bleeding (principal); R55 Syncope and collapse
CPT/HCPCS: 90004; 90100; 91556; 92235; 92530; 95059